=== PATIENT | female | born 1995 | race African-American/Black ===

== ENCOUNTER 2019-01-06 15:00 | Emergency (ER) | payer MEDICAID ==
[~2019-01-06] VITALS: Ht 177.8 cm; Wt 170.0 kg
[2019-01-06] MEDS ORDERED: SODIUM CHLORIDE 0.9% 1,000 ML IV ONE (15:46)
[2019-01-06 16:11] LABS: BASOPHILS % 0.5 % (0.0-2.0); EOSINOPHILS % 1.4 % (0.0-5.0); HEMATOCRIT. 41.1 % (36.0-48.0); HEMOGLOBIN. 13.6 g/dL (12.0-16.0); LYMPHOCYTES % 27.9 % (20.0-50.0); MEAN CORPUSCULAR HEMOGLOBIN 28.1 pg (28.0-32.0); MEAN PLATELET VOLUME 7.6 fl (7.4-10.4); MONOCYTES % 7.4 % (2.0-8.0); NEUTROPHILS % 62.8 % (40.0-76.0); PLATELET 346 x1000/uL (130-400); RED BLOOD CELL COUNT 4.83 mill/uL (4.2-5.4); RED CELL DISTRIBUTION WIDTH 13.8 % (11.6-14.6)
[2019-01-06 16:16] LABS: CHLORIDE 110 mEq/L (98-107)
[2019-01-06 16:23] LABS: ETHANOL BLOOD < 10 mg/dL
[2019-01-06 16:29] LABS: HCG SCREEN NEGATIVE
[2019-01-06] MEDS ORDERED: LORAZEPAM 2MG/ML CPJ IM ONE ×2 (16:45→21:00)
[2019-01-06] MEDS ORDERED: POTASSIUM CHLORIDE 20MEQ TABLET SR PO ONE (20:15)
[2019-01-06] MEDS ORDERED: DIPHENHYDRAMINE 50MG/ML VIAL IM ONE (21:00)
[2019-01-06] MEDS ORDERED: HALOPERIDOL LACTATE 5MG/ML VIAL IM ONE (21:00)
[2019-01-07 07:11] LABS: *AMPHETAMINES SCREEN URINE NEGATIVE (NEGATIVE); *BARBITURATES SCREEN URINE NEGATIVE (NEGATIVE); *BENZODIAZEPINES SCREEN URINE NEGATIVE (NEGATIVE); *COCAINE SCREEN URINE NEGATIVE (NEGATIVE); METHADONE URINE SCREEN NEGATIVE (NEGATIVE); OPIATES URINE SCREEN NEGATIVE (NEGATIVE); PHENCYCLIDINE URINE SCREEN NEGATIVE (NEGATIVE)
[2019-01-07 07:12] LABS: CANNABINOID URINE SCREEN NEGATIVE (NEGATIVE)
[2019-01-08 15:28] VITALS: BP 132/72
== END 2019-01-08 16:17 | disposition home or self-care (01) ==
LOC: ER 15:00
DX: F20.9 Schizophrenia, unspecified (principal); I10 Essential (primary) hypertension
CPT/HCPCS: 36415; 80053; 80305; 80307; 80320; 80329; 84484; 84703; 85025; 93005; 96372; 99284; J1200; J1630; J2060; J7030; G0480